=== PATIENT | female | born 1935 | race Two or more races ===

== ENCOUNTER 2017-05-25 10:04 | Inpatient (IN) | payer OTHER, MEDICAID ==
[2017-05-25] VITALS (14 sets, daily range): BP systolic 116–157; BP diastolic 46–106
[~2017-05-25] VITALS: Ht 147.3 cm; Wt 69.2 kg
[~2017-05-25 10:04] MED LIST: ACET500C PO; ALBU0.5N2 IN; ASPI-498 OR; ERGO1CAP6 PO; FERR1TAB17 PO; FORM1POW2 INH; INSDRIP SUBCUT; IPRA1POW INH; ISOS20TA PO; LEVO50TA7 PO; LORA-653 PO; NIFE60TA59 PO; NITR400A5 SL; NUTRPAK PO; OMEGCAP9 PO; OMEP20CA74 PO; [UNRECOGNIZED DRUG - CODE] IJ
[2017-05-25 11:03] LABS: Basophils # (auto) 0 uL; Basophils % (auto) 0.4 % (0.0-2.0); CONDITION Y; DEFINITIVE SEE PRINTOUT; Eosinophils # (auto) 0 uL; Eosinophils % (auto) 0.2 % (0.0-7.0); Hematocrit 22.1 % (36.0-46.0); Hemoglobin 7.1 g/dL (12.2-16.2); Lymphocytes # (auto) 0.8 uL; Lymphocytes % (auto) 11.3 % (10.0-50.0); Mean Corpuscular Hemoglobin 33.6 pg (28.0-32.0); Mean Corpuscular Hgb Conc. 32.2 g/dL (32.0-36.0); Mean Corpuscular Volume 104.6 fL (80.0-100.0); Mean Platelet Volume 7.7 fL (7.4-10.4); Monocytes # (auto) 0.3 uL; Monocytes % (auto) 4.1 % (0.0-12.0); Neutrophils # (auto) 5.9 uL; Platelet Count (auto) 341 10^3/uL (140-450); SUSPECT SEE PRINTOUT; White Blood Cell 7.1 10^3/uL (4.4-10.8)
[2017-05-25 11:24] LABS: INR 1.09 (0.9-1.15); Prothrombin Time 11.9 sec (9.37-12.3)
[2017-05-25 11:32] LABS: BUN/Creatinine Ratio 5.2; Bilirubin, Total 0.3 mg/dL (0.2-1.0); Calcium 8.5 mg/dL (8.5-10.1); Potassium 3.9 mmol/L (3.5-5.1); Total Protein 6.7 g/dL (6.4-8.2)
[2017-05-25] MEDS: SODIUM CHLORIDE 0.9% 1,000 ML IVB ONE ×2 (11:33→12:04)
[2017-05-25 11:57] LABS: Platelet Estimate Adequate
[2017-05-25 11:58] LABS: Anisocytosis Slight; Macrocytosis Slight
[2017-05-25 12:27] LABS: B-Type Natriuretic Peptide > 5000.00 pg/mL (0-100)
[2017-05-25] MEDS ORDERED: ONDANSETRON HCL 4 MG/2 ML VIAL IV ONE (12:30)
[2017-05-25] MEDS ORDERED: HYDROmorphone HCL 2 MG/ML VL IV ONE (12:30)
[2017-05-25 12:34] LABS: Temperature: 23.3 C (20.0-25.0)
[2017-05-25] MEDS ORDERED: DEXTROSE (50%) 50ML SYRG IV PRN (12:45)
[2017-05-25] MEDS ORDERED: NITROGLYCERIN 0.4 MG SL TAB SL PRN ×2 (13:30→20:00)
[2017-05-25] MEDS ORDERED: LORazepam 0.5 MG TAB PO PRN (13:30)
[2017-05-25] MEDS: ACCU-CHEK COMFORT CURVE STRIP VI SCH ×8 (13:30→23:08)
[2017-05-25] MEDS ORDERED: HYDROmorphone HCL 2 MG/ML VL IV PRN (13:30)
[2017-05-25] MEDS ORDERED: ONDANSETRON HCL 4 MG/2 ML VIAL IV PRN (13:30)
[2017-05-25 13:59] LABS: Base Excess -10.4 mmol/L (-2.0-2.0); Blood 02Sat 96.9 % (96-100); Blood COHb 0.2 % (0.5-1.5); Blood MetHb 0.5 % (0.0-1.5); HCO3 14.1 mmol/L (22-26.0); HHb 3.1 % (0.0-5.0); MODE NASAL CANNULA; O2Hb 96.2 % (94.0-97.0); PCO2 26.5 mmHg (35.0-45.0); PCO2(T) 26.5 mmHg (35.0-45.0); PO2 121.8 mmHg (80.0-100.0); PO2(T) 121.8 mmHg (80.0-100.0); Sample Type Arterial; pH 7.345 (7.350-7.450)
[2017-05-25] MEDS ORDERED: metroNIDAZOLE 500MG/100ML 100 ML IV SCH (14:00)
[2017-05-25] MEDS: PANTOPRAZOLE 40 MG/10 ML VIAL IV SCH ×2 (14:06→22:04)
[2017-05-25] MEDS: InsuLIN R (HUMAN) 100 UNITS in SODIUM CHL 0.9% 99 ML IV SCH ×2 (18:10→20:10)
[2017-05-25] MEDS ORDERED: LIDOCAINE 1% HCL (LOCAL ANESTH.) INJ 20ML MDV ID ONE (19:00)
[2017-05-25] MEDS: IPRATROPIUM BROM 0.5 MG/2.5ML INH SOL NEB SCH (19:32)
[2017-05-25] MEDS: ALBUTEROL SULF 2.5 MG/0.5ML(0.5%) NEB SOLN NEB SCH (19:32)
[2017-05-25] MEDS ORDERED: PROMETHAZINE HCL 25 MG/ML 1ML ONE (19:43)
[2017-05-25] MEDS ORDERED: CLOP75TA28 PO (19:57)
[2017-05-25] MEDS: PROMETHAZINE HCL 25 MG/ML 1ML IV PRN (19:57)
[2017-05-25] MEDS ORDERED: PROMETHAZINE HCL 25 MG/ML 1ML IV PRN (20:00)
[2017-05-25] MEDS ORDERED: TRAZ100T2 PO (20:01)
[2017-05-25] MEDS ORDERED: LOR05T PO (20:03)
[2017-05-25] MEDS ORDERED: ATOR20TA PO (20:04)
[2017-05-25] MEDS ORDERED: FURO40TA4 PO (20:05)
[2017-05-25] MEDS ORDERED: ISOS20TA49 PO (20:08)
[2017-05-25] MEDS: traZODone HCL 50 MG TAB PO SCH (21:34)
[2017-05-25 22:04] LABS: BUN/Creatinine Ratio 5.3; Calcium 8.5 mg/dL (8.5-10.1)
[2017-05-25] MEDS: SODIUM CHLOR 0.9% PF (SALINE LOCK) 10ML VIAL IV SCH (22:04)
[2017-05-26] VITALS (34 sets, daily range): BP systolic 87–169; BP diastolic 31–107
[2017-05-26] MEDS: ACCU-CHEK COMFORT CURVE STRIP VI SCH ×11 (00:13→20:21)
[2017-05-26] MEDS ORDERED: PROMETHAZINE HCL 25 MG/ML 1ML IM ONE (02:00)
[2017-05-26] MEDS: InsuLIN R (HUMAN) 100 UNITS in SODIUM CHL 0.9% 99 ML IV SCH (02:05)
[2017-05-26 04:12] LABS: Basophils # (auto) 0 uL; Basophils % (auto) 0.2 % (0.0-2.0); CONDITION Y; DEFINITIVE SEE PRINTOUT; Eosinophils # (auto) 0 uL; Eosinophils % (auto) 0.2 % (0.0-7.0); Hemoglobin 8.9 g/dL (12.2-16.2); Lymphocytes # (auto) 1.5 uL; Lymphocytes % (auto) 17.9 % (10.0-50.0); Mean Corpuscular Hemoglobin 32.2 pg (28.0-32.0); Mean Corpuscular Hgb Conc. 33.2 g/dL (32.0-36.0); Mean Corpuscular Volume 97.1 fL (80.0-100.0); Mean Platelet Volume 7.8 fL (7.4-10.4); Monocytes # (auto) 0.5 uL; Monocytes % (auto) 6.1 % (0.0-12.0); Neutrophils # (auto) 6.5 uL; Neutrophils % (auto) 75.6 % (37.0-80.0); Platelet Count (auto) 349 10^3/uL (140-450); White Blood Cell 8.6 10^3/uL (4.4-10.8)
[2017-05-26 04:22] LABS: Red Cell Distribution Width 23.3 % (11.6-16.0)
[2017-05-26 04:36] LABS: Potassium 3.5 mmol/L (3.5-5.1)
[2017-05-26 04:44] LABS: BUN/Creatinine Ratio 5.5; Calcium 8.2 mg/dL (8.5-10.1)
[2017-05-26] MEDS: LEVOTHYROXINE SODIUM 50 MCG TAB PO SCH (06:18)
[2017-05-26] MEDS: ALBUTEROL SULF 2.5 MG/0.5ML(0.5%) NEB SOLN NEB SCH ×3 (06:27→18:24)
[2017-05-26] MEDS: IPRATROPIUM BROM 0.5 MG/2.5ML INH SOL NEB SCH ×3 (06:27→18:24)
[2017-05-26 06:40] LABS: Platelet Estimate Adequate; Stomatocytes Few
[2017-05-26 06:41] LABS: Anisocytosis Slight
[2017-05-26 07:24] LABS: Vitamin B12 958 pg/mL (211-911)
[2017-05-26 07:57] LABS: Temperature: 23.7 C (20.0-25.0)
[2017-05-26] MEDS: SODIUM CHLOR 0.9% PF (SALINE LOCK) 10ML VIAL IV SCH ×3 (09:49→20:56)
[2017-05-26] MEDS: PANTOPRAZOLE 40 MG/10 ML VIAL IV SCH ×2 (09:57→20:55)
[2017-05-26] MEDS: InsuLIN REG 1unit/0.01ml Soln (100units/ml) SC SCH ×3 (12:20→20:21)
[2017-05-26] MEDS ORDERED: InsuLIN REG 1unit/0.01ml Soln (100units/ml) ONE (12:20)
[2017-05-26] MEDS ORDERED: DEXTROSE (50%) 50ML SYRG IV PRN (12:30)
[2017-05-26] MEDS: ACETAMINOPHEN 500 MG TAB PO PRN ×2 (13:06→20:55)
[2017-05-26 13:53] LABS: Hematocrit 26.2 % (36.0-46.0); Hemoglobin 8.6 g/dL (12.2-16.2)
[2017-05-26 14:34] LABS: BUN/Creatinine Ratio 5.6; Calcium 8.1 mg/dL (8.5-10.1); Potassium 3.6 mmol/L (3.5-5.1)
[2017-05-26] MEDS ORDERED: AMIODARONE HCL 150 MG in D5W 5% 100 ML IV ONE ×2 (19:00→19:15)
[2017-05-26] MEDS ORDERED: AMIODARONE HCL (50 MG/ ML) 3 ML VIAL IV ONE (19:03)
[2017-05-26] MEDS ORDERED: AMIODARONE HCL 900 MG in DEXTROSE 500 ML IV SCH (19:45)
[2017-05-26] MEDS: traZODone HCL 50 MG TAB PO SCH (20:55)
[2017-05-27] VITALS (25 sets, daily range): BP systolic 91–158; BP diastolic 34–112
[2017-05-27] MEDS: ACCU-CHEK COMFORT CURVE STRIP VI SCH ×6 (00:27→21:31)
[2017-05-27] MEDS: InsuLIN REG 1unit/0.01ml Soln (100units/ml) SC SCH ×6 (00:27→21:31)
[2017-05-27] MEDS: ACETAMINOPHEN 500 MG TAB PO PRN ×2 (02:02→17:35)
[2017-05-27] MEDS: AMIODARONE HCL 900 MG in DEXTROSE 500 ML IV SCH ×2 (02:02→18:11)
[2017-05-27] MEDS: LEVOTHYROXINE SODIUM 50 MCG TAB PO SCH (05:59)
[2017-05-27] MEDS ORDERED: DEXTROSE (50%) 50ML SYRG IV PRN (07:00)
[2017-05-27 07:03] LABS: Basophils # (auto) 0 uL; Basophils % (auto) 0.3 % (0.0-2.0); CONDITION Y; DEFINITIVE SEE PRINTOUT; Eosinophils # (auto) 0.1 uL; Eosinophils % (auto) 1.5 % (0.0-7.0); Hematocrit 25.2 % (36.0-46.0); Hemoglobin 8.4 g/dL (12.2-16.2); Lymphocytes # (auto) 2.1 uL; Lymphocytes % (auto) 24.9 % (10.0-50.0); Mean Corpuscular Hemoglobin 32.3 pg (28.0-32.0); Mean Corpuscular Hgb Conc. 33.2 g/dL (32.0-36.0); Mean Platelet Volume 7.8 fL (7.4-10.4); Monocytes # (auto) 0.5 uL; Monocytes % (auto) 6.3 % (0.0-12.0); Neutrophils # (auto) 5.6 uL; Platelet Count (auto) 317 10^3/uL (140-450); White Blood Cell 8.4 10^3/uL (4.4-10.8)
[2017-05-27 07:05] LABS: Red Cell Distribution Width 22.7 % (11.6-16.0)
[2017-05-27 07:33] LABS: Albumin 1.9 g/dL (3.4-5.0); BUN/Creatinine Ratio 5.5; Bilirubin, Total 0.8 mg/dL (0.2-1.0); Calcium 7.9 mg/dL (8.5-10.1); Magnesium 2.1 mg/dL (1.6-2.6); Potassium 3.2 mmol/L (3.5-5.1); Total Protein 6.3 g/dL (6.4-8.2)
[2017-05-27 07:56] LABS: Anisocytosis Slight
[2017-05-27 07:57] LABS: Macrocytosis Slight; Platelet Estimate Adequate; Polychromasia Slight
[2017-05-27] MEDS: ALBUTEROL SULF 2.5 MG/0.5ML(0.5%) NEB SOLN NEB SCH ×4 (08:21→20:22)
[2017-05-27] MEDS: IPRATROPIUM BROM 0.5 MG/2.5ML INH SOL NEB SCH ×4 (08:21→20:22)
[2017-05-27] MEDS: SODIUM CHLOR 0.9% PF (SALINE LOCK) 10ML VIAL IV SCH ×2 (11:10→21:31)
[2017-05-27] MEDS ORDERED: AMIODARONE HCL 200 MG TAB PO ONE (14:30)
[2017-05-27] MEDS ORDERED: EPOETIN ALFA 10,000 UNIT/1 ML VIAL SC ONE (15:30)
[2017-05-27] MEDS: PANTOPRAZOLE 40 MG/10 ML VIAL IV SCH ×2 (18:24→21:31)
[2017-05-27] MEDS: POTASSIUM CHL 10 Meq TABLET PO SCH (18:24)
[2017-05-27 18:51] LABS: INR 1.23 (0.9-1.15); Partial Thromboplastin Time 26.1 sec (22.64-33.71); Prothrombin Time 13.4 sec (9.37-12.3)
[2017-05-27] MEDS: traZODone HCL 50 MG TAB PO SCH (21:31)
[2017-05-27] MEDS: AMIODARONE HCL 200 MG TAB PO SCH (21:31)
[2017-05-27] MEDS: PROMETHAZINE HCL 25 MG/ML 1ML IV PRN (23:41)
[2017-05-28] VITALS (8 sets, daily range): BP systolic 107–160; BP diastolic 63–102
[2017-05-28] MEDS: ACETAMINOPHEN 500 MG TAB PO PRN (00:27)
[2017-05-28] MEDS ORDERED: NITROGLYCERIN 0.4 MG SL TAB SL ONE (01:12)
[2017-05-28] MEDS: ACCU-CHEK COMFORT CURVE STRIP VI SCH ×4 (06:22→22:17)
[2017-05-28] MEDS: InsuLIN REG 1unit/0.01ml Soln (100units/ml) SC SCH ×4 (06:22→22:35)
[2017-05-28 06:29] LABS: Basophils # (auto) 0 uL; Basophils % (auto) 0.6 % (0.0-2.0); CONDITION Y; DEFINITIVE SEE PRINTOUT; Eosinophils # (auto) 0.1 uL; Eosinophils % (auto) 2.1 % (0.0-7.0); Hematocrit 32.2 % (36.0-46.0); Hemoglobin 10.7 g/dL (12.2-16.2); Lymphocytes # (auto) 0.9 uL; Lymphocytes % (auto) 16.7 % (10.0-50.0); Mean Corpuscular Hemoglobin 31.4 pg (28.0-32.0); Mean Corpuscular Hgb Conc. 33.3 g/dL (32.0-36.0); Mean Corpuscular Volume 94.4 fL (80.0-100.0); Mean Platelet Volume 7.9 fL (7.4-10.4); Monocytes # (auto) 0.2 uL; Monocytes % (auto) 4.4 % (0.0-12.0); Neutrophils % (auto) 76.2 % (37.0-80.0); Platelet Count (auto) 280 10^3/uL (140-450); SUSPECT SEE PRINTOUT; White Blood Cell 5.3 10^3/uL (4.4-10.8)
[2017-05-28] MEDS: LEVOTHYROXINE SODIUM 50 MCG TAB PO SCH (06:36)
[2017-05-28 07:01] LABS: BUN/Creatinine Ratio 5.6; Bilirubin, Total 0.5 mg/dL (0.2-1.0); Magnesium 2.1 mg/dL (1.6-2.6); Potassium 3.3 mmol/L (3.5-5.1); Total Protein 6.3 g/dL (6.4-8.2)
[2017-05-28 07:12] LABS: Red Cell Distribution Width 21.3 % (11.6-16.0)
[2017-05-28] MEDS: ALBUTEROL SULF 2.5 MG/0.5ML(0.5%) NEB SOLN NEB SCH ×4 (07:50→19:36)
[2017-05-28] MEDS: IPRATROPIUM BROM 0.5 MG/2.5ML INH SOL NEB SCH ×4 (07:50→19:36)
[2017-05-28 08:13] LABS: Anisocytosis Slight; Platelet Estimate Adequate
[2017-05-28 08:14] LABS: BUN/Creatinine Ratio 5.6; Calcium 7.9 mg/dL (8.5-10.1); Potassium 3.5 mmol/L (3.5-5.1)
[2017-05-28 08:15] LABS: Lactic Acid w/Reflex 3.5 mmol/L (0.4-2.0)
[2017-05-28 08:22] LABS: Bilirubin, Total 0.6 mg/dL (0.2-1.0); Total Protein 6.8 g/dL (6.4-8.2)
[2017-05-28 08:47] LABS: REFLEX LACTIC ACID YES OR NO YES
[2017-05-28] MEDS: POTASSIUM CHL 10 Meq TABLET PO SCH ×2 (10:00→18:03)
[2017-05-28] MEDS ORDERED: ASPirin 325 MG TAB PO ONE (10:00)
[2017-05-28] MEDS: AMIODARONE HCL 200 MG TAB PO SCH (10:00)
[2017-05-28] MEDS: PANTOPRAZOLE 40 MG/10 ML VIAL IV SCH ×2 (10:13→22:33)
[2017-05-28] MEDS: SODIUM CHLOR 0.9% PF (SALINE LOCK) 10ML VIAL IV SCH ×2 (10:13→22:16)
[2017-05-28] MEDS ORDERED: IOHEXOL 350 MG/ML 100ML IJ ONE (12:10)
[2017-05-28] MEDS ORDERED: LIDOCAINE 2%HCL (LOCAL ANESTH.) INJ 20ML MDV ONE (12:10)
[2017-05-28] MEDS ORDERED: ANGIOMAX 250 MG VIAL IV ONE (13:43)
[2017-05-28] MEDS ORDERED: MIDAZOLAM HCL 1MG/1ML-2 ML VIAL ONE (13:44)
[2017-05-28] MEDS ORDERED: SODIUM CHL 0.9% 0 ML ONE (13:44)
[2017-05-28] MEDS ORDERED: EPTIFIBATIDE INJ (2MG/ML) 10ML VIAL IV ONE (13:44)
[2017-05-28] MEDS ORDERED: FUROSEMIDE 40 MG/4 ML VIAL IV ONE (14:00)
[2017-05-28] MEDS ORDERED: SUCR1TAB PO (17:56)
[2017-05-28] MEDS ORDERED: [UNRECOGNIZED DRUG - OTHER] (17:56)
[2017-05-28] MEDS ORDERED: CALC0.25 (17:56)
[2017-05-28 19:26] LABS: Calcium 7.3 mg/dL (8.5-10.1); Potassium 3.9 mmol/L (3.5-5.1)
[2017-05-28 19:30] LABS: Albumin 1.8 g/dL (3.4-5.0); BUN/Creatinine Ratio 5.5
[2017-05-28 19:32] LABS: Bilirubin, Total 0.5 mg/dL (0.2-1.0); Total Protein 5.9 g/dL (6.4-8.2)
[2017-05-28] MEDS ORDERED: METOPROLOL TARTRATE 25 MG TAB PO SCH (22:00)
[2017-05-28] MEDS: METOPROLOL TARTRATE 25 MG TAB PO SCH (22:33)
[2017-05-28] MEDS: traZODone HCL 50 MG TAB PO SCH (22:36)
[2017-05-28] MEDS: RANOLAZINE ER 500 MG TAB PO SCH (22:48)
[2017-05-29] MEDS ORDERED: NITROGLYCERIN 0.4 MG SL TAB SL ONE (01:32)
[2017-05-29 05:00] VITALS: BP 111/56
[2017-05-29] MEDS: ALBUTEROL SULF 2.5 MG/0.5ML(0.5%) NEB SOLN NEB SCH ×6 (06:00→19:05)
[2017-05-29] MEDS: IPRATROPIUM BROM 0.5 MG/2.5ML INH SOL NEB SCH ×6 (06:00→19:05)
[2017-05-29 06:06] LABS: Basophils # (auto) 0 uL; Basophils % (auto) 0.2 % (0.0-2.0); CONDITION Y; DEFINITIVE SEE PRINTOUT; Eosinophils # (auto) 0 uL; Eosinophils % (auto) 0.5 % (0.0-7.0); Hematocrit 35.6 % (36.0-46.0); Hemoglobin 11.7 g/dL (12.2-16.2); Lymphocytes # (auto) 0.8 uL; Lymphocytes % (auto) 10.7 % (10.0-50.0); Mean Corpuscular Hemoglobin 32.9 pg (28.0-32.0); Mean Corpuscular Hgb Conc. 32.8 g/dL (32.0-36.0); Mean Corpuscular Volume 100.3 fL (80.0-100.0); Mean Platelet Volume 8.7 fL (7.4-10.4); Monocytes # (auto) 0.3 uL; Neutrophils # (auto) 6.3 uL; Neutrophils % (auto) 84.6 % (37.0-80.0); Platelet Count (auto) 222 10^3/uL (140-450); White Blood Cell 7.4 10^3/uL (4.4-10.8)
[2017-05-29 06:07] LABS: Red Cell Distribution Width 24.3 % (11.6-16.0)
[2017-05-29] MEDS: ACCU-CHEK COMFORT CURVE STRIP VI SCH ×4 (06:24→22:00)
[2017-05-29] MEDS: InsuLIN REG 1unit/0.01ml Soln (100units/ml) SC SCH ×4 (06:36→22:00)
[2017-05-29] MEDS: LEVOTHYROXINE SODIUM 50 MCG TAB PO SCH (06:36)
[2017-05-29 06:54] LABS: Anisocytosis Moderate; Burr Cells FEW; Macrocytosis Slight; Ovalocytes FEW; Platelet Estimate Adequate
[2017-05-29 06:55] LABS: Polychromasia Slight
[2017-05-29 07:04] LABS: BUN/Creatinine Ratio 5.8; Bilirubin, Direct 0.3 mg/dL (0-0.2); Bilirubin, Total 0.5 mg/dL (0.2-1.0); Calcium 7.8 mg/dL (8.5-10.1); Magnesium 2.2 mg/dL (1.6-2.6); Potassium 3.7 mmol/L (3.5-5.1); Total Protein 6.9 g/dL (6.4-8.2)
[2017-05-29 09:00] VITALS: BP 119/60
[2017-05-29] MEDS: METOPROLOL TARTRATE 25 MG TAB PO SCH ×2 (10:00→22:00)
[2017-05-29] MEDS: RANOLAZINE ER 500 MG TAB PO SCH ×2 (10:35→22:00)
[2017-05-29] MEDS: PANTOPRAZOLE 40 MG/10 ML VIAL IV SCH ×2 (10:35→22:00)
[2017-05-29] MEDS: SODIUM CHLOR 0.9% PF (SALINE LOCK) 10ML VIAL IV SCH (10:36)
[2017-05-29] MEDS: FUROSEMIDE 40 MG/4 ML VIAL IV SCH (10:36)
[2017-05-29 13:00] VITALS: BP 111/64
[2017-05-29 16:47] VITALS: BP 120/58
[2017-05-29] MEDS: traZODone HCL 50 MG TAB PO SCH (21:23)
[2017-05-29 21:52] VITALS: BP 96/61
[2017-05-30 04:53] VITALS: BP 103/56
[2017-05-30] MEDS: ALBUTEROL SULF 2.5 MG/0.5ML(0.5%) NEB SOLN NEB SCH ×3 (06:16→11:11)
[2017-05-30] MEDS: IPRATROPIUM BROM 0.5 MG/2.5ML INH SOL NEB SCH ×3 (06:16→11:11)
[2017-05-30] MEDS: SODIUM CHLOR 0.9% PF (SALINE LOCK) 10ML VIAL IV SCH ×2 (06:49→10:46)
[2017-05-30] MEDS: LEVOTHYROXINE SODIUM 50 MCG TAB PO SCH (06:55)
[2017-05-30] MEDS: ACCU-CHEK COMFORT CURVE STRIP VI SCH ×2 (06:56→11:54)
[2017-05-30] MEDS: InsuLIN REG 1unit/0.01ml Soln (100units/ml) SC SCH ×2 (06:56→11:54)
[2017-05-30 09:00] VITALS: BP 99/42
[2017-05-30] MEDS: METOPROLOL TARTRATE 25 MG TAB PO SCH (10:00)
[2017-05-30] MEDS: FUROSEMIDE 40 MG/4 ML VIAL IV SCH (10:00)
[2017-05-30] MEDS: PANTOPRAZOLE 40 MG/10 ML VIAL IV SCH (10:46)
[2017-05-30] MEDS: RANOLAZINE ER 500 MG TAB PO SCH (10:47)
[2017-05-30 11:33] LABS: Albumin 1.8 g/dL (3.4-5.0); Bilirubin, Direct 0.2 mg/dL (0-0.2); Bilirubin, Total 0.5 mg/dL (0.2-1.0)
[2017-05-30 13:00] VITALS: BP 108/48
== END 2017-05-30 14:00 | DRG 286 ==
LOC: ER 10:04 → TELE 10:05 → ICU WEST 16:50 → TELE-WESTW 05-27 02:50 → ICU WEST 05-27 04:00 → TELE-WESTW 05-27 23:45
PROVIDERS: ADMIT Nurse Practitioner Family; ATTEND Family Medicine
PROC: 30233N1 Transfusion of Nonautologous Red Blood Cells into Peripheral Vein, Percutaneous Approach (ICD-10-PCS; 2017-05-25)
PROC: 02HV33Z Insertion of Infusion Device into Superior Vena Cava, Percutaneous Approach (ICD-10-PCS; 2017-05-25)
PROC: 4A023N7 Measurement of Cardiac Sampling and Pressure, Left Heart, Percutaneous Approach (ICD-10-PCS; principal; 2017-05-28)
PROC: B2111ZZ Fluoroscopy of Multiple Coronary Arteries using Low Osmolar Contrast (ICD-10-PCS; 2017-05-28)
PROC: B2181ZZ Fluoroscopy of Left Internal Mammary Bypass Graft using Low Osmolar Contrast (ICD-10-PCS; 2017-05-28)
PROC: B2121ZZ Fluoroscopy of Single Coronary Artery Bypass Graft using Low Osmolar Contrast (ICD-10-PCS; 2017-05-28)
PROC: B41D1ZZ Fluoroscopy of Aorta and Bilateral Lower Extremity Arteries using Low Osmolar Contrast (ICD-10-PCS; 2017-05-28)
DX: I13.2 Hypertensive heart and chronic kidney disease with heart failure and with stage 5 chronic kidney disease, or end stage renal disease (principal); E13.10 Other specified diabetes mellitus with ketoacidosis without coma; N17.9 Acute kidney failure, unspecified; K92.2 Gastrointestinal hemorrhage, unspecified; E87.1 Hypo-osmolality and hyponatremia; J44.9 Chronic obstructive pulmonary disease, unspecified; E11.22 Type 2 diabetes mellitus with diabetic chronic kidney disease; I50.43 Acute on chronic combined systolic (congestive) and diastolic (congestive) heart failure; N18.6 End stage renal disease; I24.0 Acute coronary thrombosis not resulting in myocardial infarction; B17.9 Acute viral hepatitis, unspecified; I48.91 Unspecified atrial fibrillation; I25.110 Atherosclerotic heart disease of native coronary artery with unstable angina pectoris; I25.5 Ischemic cardiomyopathy; D50.0 Iron deficiency anemia secondary to blood loss (chronic); D63.8 Anemia in other chronic diseases classified elsewhere; E03.9 Hypothyroidism, unspecified; E87.6 Hypokalemia; F32.9 Major depressive disorder, single episode, unspecified; F41.9 Anxiety disorder, unspecified; G47.00 Insomnia, unspecified; K21.9 Gastro-esophageal reflux disease without esophagitis; Z96.642 Presence of left artificial hip joint; E78.5 Hyperlipidemia, unspecified; T46.2X5A Adverse effect of other antidysrhythmic drugs, initial encounter; Z79.4 Long term (current) use of insulin; Z82.3 Family history of stroke; Z82.49 Family history of ischemic heart disease and other diseases of the circulatory system; Z83.3 Family history of diabetes mellitus; Z86.73 Personal history of transient ischemic attack (TIA), and cerebral infarction without residual deficits; Z99.2 Dependence on renal dialysis; Z95.1 Presence of aortocoronary bypass graft; Z79.82 Long term (current) use of aspirin; Z79.899 Other long term (current) drug therapy; Z88.5 Allergy status to narcotic agent; Z88.0 Allergy status to penicillin; Z88.8 Allergy status to other drugs, medicaments and biological substances; Z88.6 Allergy status to analgesic agent; Z91.040 Latex allergy status; Z90.49 Acquired absence of other specified parts of digestive tract
CPT/HCPCS: 36415; 36569; 36600; 71010; 76705; 80048; 80053; 80061; 80074; 80076; 82607; 82728; 82746; 82805; 82962; 83036; 83540; 83550; 83605; 83690; 83735; 83880; 84443; 84484; 85014; 85018; 85025; 85610; 85730; 86850; 86900; 86901; 86920; 87081; 93005; 93306; 93459; 94640; 94761; 96374; 96375; 97163; 99152; 99153; C9113; J0885; J1815; J2250; J2405; J7060